=== PATIENT | male | born 1960 | race Caucasian/White ===

== ENCOUNTER 2017-08-22 22:25 | Emergency (ER) | payer MEDICARE, MEDICAID ==
[~2017-08-22] VITALS: Ht 180.3 cm; Wt 110.9 kg
[~2017-08-22 22:25] MED LIST: AMBIEN 10MG10 MG PO; AMOXICILLIN 50500 MG PO; COLACE 100100 MG/CAP PO; FLOMAX 0.40.4 MG/CAP PO; HUMALOG PEN100 U/ML SC; LANTUS SOLOS100 U/ML SC; LEVSIN 0.10.125 MG/T PO; LIPITOR 40MG TA40 MG PO; NORCO 325 MG-51 TAB PO; PRINIVIL10 MG PO; PYRIDIUM200 M1 PO
[2017-08-22 22:37] VITALS: TEMP 97.8
[2017-08-22] MEDS ORDERED: FLOMAX 0.40.4 MG/CAP PO (22:45)
[2017-08-22] MEDS ORDERED: LIPITOR 40MG TA40 MG PO (22:45)
[2017-08-22] MEDS ORDERED: PRINIVIL10 MG PO (22:46)
[2017-08-22] MEDS ORDERED: AMBIEN 10MG10 MG PO (22:46)
[2017-08-22 23:09] LABS: BASO % 0.6 % (0.0-2.0); EOS # 0.3 (0.0-0.7); GRAN # 2.7 (1.4-6.5); GRAN % 41.6 % (42.2-75.2); HEMATOCRIT 44.5 % (42.0-52.0); HEMOGLOBIN 16.3 g/dl (13.5-18.0); LYMPH # 2.9 (1.2-3.4); LYMPH % 44.3 % (20.0-51.0); MEAN CELL VOLUME 82 fl (80.0-100.0); MEAN CORPUSCULAR HEMOGLOBIN 30 pg (27.0-31.0); MEAN CORPUSCULAR HGB CONC 37 g/dl (33.0-37.0); MEAN PLATELET VOLUME 10.5 fl (7.4-10.4); MONO # 0.6 (0.1-0.6); MONO % 9.3 % (1.7-9.3); PLATELET COUNT 185 K/mm3 (130-400); RED BLOOD COUNT 5.45 M/mm3 (4.20-5.60); REDCELL DISTRIBUTION WIDTH-CV 12.3 % (11.5-14.5)
[2017-08-22 23:18] LABS: BILIRUBIN,TOTAL 0.4 mg/dL (0.0-1.0); CALCIUM 9.4 mg/dL (8.4-10.2); CREATININE, serum 0.56 mg/dL (0.66-1.25); TOTAL PROTEIN 7.9 gm/dL (6.4-8.2)
[2017-08-23 01:21] LABS: MUCOUS Present /lpf; PH 5 (5-8); SQUAMOUS EPITHELIAL 0-2 /hpf; URINE APPEARANCE Hazy; URINE BACTERIA None Seen /hpf; URINE BILIRUBIN Negative (NEGATIVE); URINE BLOOD 1+ (NEGATIVE); URINE COLOR Straw; URINE GLUCOSE 3+ (NEGATIVE); URINE KETONE Trace (NEGATIVE); URINE LEUKOCYTE ESTERASE 1+ (NEGATIVE); URINE NITRATE Negative (NEGATIVE); URINE PROTEIN(semi-quant) Negative (NEGATIVE); URINE UROBILINOGEN Negative (NEGATIVE); URINE WBC 20-50 /hpf
[2017-08-23 02:10] LABS: COLLECTION METHOD CLEAN CATCH
[2017-08-23 02:51] LABS: CALCIUM 8.6 mg/dL (8.4-10.2); CREATININE, serum 0.49 mg/dL (0.66-1.25); POTASSIUM 3.9 mmol/L (3.4-5.0)
[2017-08-23] MEDS ORDERED: CEPHALEXIN500 M1 PO (03:05)
[2017-08-23] MEDS ORDERED: LANTUS SOLOS100 U/ML SQ (03:05)
[2017-08-23] MEDS ORDERED: GLUCOPHAGE500 MG/TAB PO (03:05)
[2017-08-23 03:31] VITALS: BP 134/94; PULSE 95
== END 2017-08-23 03:31 | disposition home or self-care (01) ==
LOC: COL.ER 22:25
PROVIDERS: Emergency Medicine
DX: M79.662 Pain in left lower leg (principal); E11.42 Type 2 diabetes mellitus with diabetic polyneuropathy; E11.65 Type 2 diabetes mellitus with hyperglycemia; N39.0 Urinary tract infection, site not specified; T81.4XXA Infection following a procedure, initial encounter; L08.9 Local infection of the skin and subcutaneous tissue, unspecified; F17.210 Nicotine dependence, cigarettes, uncomplicated; I10 Essential (primary) hypertension; E78.5 Hyperlipidemia, unspecified; Z98.890 Other specified postprocedural states; Z79.84 Long term (current) use of oral hypoglycemic drugs
CPT/HCPCS: J0696; J1815; J7030

== ENCOUNTER 2019-12-30 17:28 | Inpatient (IN) | payer MEDICARE, MEDICAID ==
[2019-12-30] VITALS (9 sets, daily range): BP systolic 94–124; BP diastolic 48–81; PULSE 69–75; TEMP 98.9
[~2019-12-30] VITALS: Ht 180.3 cm; Wt 116.9 kg
[~2019-12-30 17:28] MED LIST changes: +CEPHALEXIN500 M1 PO; +GLUCOPHAGE500 MG/TAB PO; +LANTUS SOLOS100 U/ML SQ
--- NOTE | 2019-12-30 17:38 | NUR ---
PATIENT ARRIVED TO FLOOR AT 1700 VIA [facility]. RECEIVED REPORT FROM ER NURSE PARISH. SURGICAL STAFF GREETED PATIENT ON THE FLOOR. CONSENT SIGNED AND FLUIDS INITIATED. ANESTHEISA MET WITH PATIENT AND THEN HE WAS TAKEN STRAIGHT TO OR AT 1730.
--- NOTE | 2019-12-30 20:00 | NUR ---
Bedside report received from TIFFANY Lord
--- NOTE | 2019-12-30 20:45 | NUR ---
Patient laying comfortably in the bed. Admission complete. Assessment complete, see shift assessment for details. YESI Looney at the bedside.
[2019-12-31] VITALS (7 sets, daily range): BP systolic 96–133; BP diastolic 52–78; PULSE 57–80; TEMP 97.4–98.6
[2019-12-31] MEDS ORDERED: CIPRO 500MG TA500 MG PO (02:35)
[2019-12-31] MEDS ORDERED: LANTUS SOLOS100 U/ML SQ (02:36)
--- NOTE | 2019-12-31 06:00 | NUR ---
Patient has done well throughout the night. Pain has been well managed with medications. Patient's dressing is still intact with little drainage on the ABD pad. Patient has no further needs and is resting comfortably. Call light within reach.
[2019-12-31 07:12] LABS: HEMATOCRIT 37.7 % (42.0-52.0); HEMOGLOBIN 12.7 g/dl (13.5-18.0); MEAN CELL VOLUME 87 fl (80.0-100.0); MEAN CORPUSCULAR HEMOGLOBIN 29 pg (27.0-31.0); MEAN CORPUSCULAR HGB CONC 34 g/dl (33.0-37.0); MEAN PLATELET VOLUME 10.1 fl (7.4-10.4); PLATELET COUNT 250 K/mm3 (130-400); RED BLOOD COUNT 4.36 M/mm3 (4.20-5.60); REDCELL DISTRIBUTION WIDTH-CV 12.1 % (11.5-14.5)
--- NOTE | 2019-12-31 07:19 | NUR ---
Bedside report given to TIFFANY Mccarty. Wound dressing assessed. Transfer of care at this time.
[2019-12-31 07:31] LABS: CALCIUM 7.7 mg/dL (8.4-10.2); CREATININE, serum 0.47 (0.66-1.25); MAGNESIUM 1.9 mg/dL (1.6-2.3); POTASSIUM 3.6 mmol/L (3.4-5.0)
--- NOTE | 2019-12-31 08:30 | NUR ---
Patient laying in bed watching TV. A&Ox3. Denies pain and discomfort. IV CDI, fluids infusing. VSS. 1L NC O2. No reported SOB. No further needs expressed from the patient. Call light within reach
--- NOTE | 2019-12-31 09:46 | NUR ---
Initial visit; Patient thanked Diamond Wheel Molder for looking in on him and offering comfort and prayer.
[2019-12-31 10:32] LABS: BAND 9 % (0-10); BASOPHIL 2 % (0-2); EOSINOPHIL 5 % (0-4); NEUTROPHILS 45 % (42.0-75.2)
[2019-12-31 10:33] LABS: PLATELET ESTIMATE NORMAL (NORMAL)
[2019-12-31 10:35] LABS: LYMPHOCYTE 30 % (20.0-51.0)
--- NOTE | 2019-12-31 10:52 | NUR ---
Vegetable Farm Manager attended clinical rounds with the team. KARMA collaborated with MUNIR Goodman about ordering PT/OT. SW met with patient after rounds to discuss discharge planning. Patient lives in [place] with his mother, Carly (ph#[phone]) and brother, Raghu (ph#[phone]). Patient sees Dr. Smith for primary care and obtains his medications from [facility] in [place] with no difficulties. Patient has a CPAP and night oxygen from [facility]. Patient states he doesn't wear his CPAP because he is working on getting a new mask. Patient reports he also has a cane and is normally independent with ADLS. Patient does not have Advance Directives and his mother would be next of kin. Patient plans to return home upon discharge. KARMA will continue to follow.
--- NOTE | 2019-12-31 18:34 | NUR ---
Patient laying in bed watching TV. Reporting some discomfort in the tip of his penis. Desenex powder placed in jose area to help with excoriation/redness. Wound in jose area packed with 5 4x4 wet to dry and abd pad. Mesh underwear to keep dressing in place. Mariano to dependent drainage. yellow with sediment. VSS. Patient is A&O. IV CDI, fluids infusing. No further needs expressed from the patient. Call light within reach
--- NOTE | 2019-12-31 20:58 | NUR ---
Initial shift assessment done- states having some bladder spasms- requesting pain meds- will give Dilaudid at this time to see if effective. IV fluids of NS at 75cc/hr- on multiple antibiotics,SCD,s on. Mariano to DD with clear yellow urine. Wound dressing intact to open wound right under scrotum- dry and intact.
[2020-01-01] VITALS (9 sets, daily range): BP systolic 124–158; BP diastolic 68–87; PULSE 60–74; TEMP 97.6–98.7
--- NOTE | 2020-01-01 05:57 | NUR ---
Pt did not sleep much all night- has multiple antibiotics and blood sugars every 4 hours--was given Dilaudid IV x2 for pain- mainly described as bladder spasms- perineal dressing remained intact. Mariano with good amounts clear yellow urine.
--- NOTE | 2020-01-01 09:23 | NUR ---
Pt awake and alert upon entry. talkative, has C/P pain at abcess site from packing removal, medications given for relief, site covered with ABD pad. Sghift assessments complete, left Pt call light in reach, bed in lowest position.
--- NOTE | 2020-01-01 18:53 | NUR ---
pt resting in the room today, left floor for procedure this afternoon and returned about 1800, no C/O pain currently, VS have remained stable during the day.
--- NOTE | 2020-01-01 19:30 | NUR ---
Initial shift assessment done- VSS, just back from OR, perineal dressing dry and intact,, IV fluids of NS at 75cc/hr. Denies pain. Urinal at bedside. Was given a supper tray-no other requests.
[2020-01-02 00:54] VITALS: BP 139/81; PULSE 66; TEMP 97.6
[2020-01-02 03:37] VITALS: BP 134/82; PULSE 57; TEMP 97.6
--- NOTE | 2020-01-02 05:11 | NUR ---
Quiet night- continues with numerous antibiotics, Did change the outside ABD on perineal dressing for scant drainage-- order for BID wet-dry dressing changes- will start this AM. Was medicated for pain x1 with Dilaudid IV- very effective. IV fluids remain at 75cc/hr. New INT started in right hand- left arm INT was leaking-dcnik. Blood sugars in the 200,s all night- received sliding scale insulin coverage every 4 hours
[2020-01-02 07:32] VITALS: BP 142/89; PULSE 66; TEMP 97.4
[2020-01-02 08:59] LABS: HEMATOCRIT 39.7 % (42.0-52.0); HEMOGLOBIN 13.5 g/dl (13.5-18.0); MEAN CELL VOLUME 85 fl (80.0-100.0); MEAN CORPUSCULAR HEMOGLOBIN 29 pg (27.0-31.0); MEAN CORPUSCULAR HGB CONC 34 g/dl (33.0-37.0); MEAN PLATELET VOLUME 9.8 fl (7.4-10.4); PLATELET COUNT 238 K/mm3 (130-400); RED BLOOD COUNT 4.65 M/mm3 (4.20-5.60); REDCELL DISTRIBUTION WIDTH-CV 12.1 % (11.5-14.5)
[2020-01-02 09:07] LABS: CALCIUM 8.1 mg/dL (8.4-10.2); CREATININE, serum 0.51 (0.66-1.25); POTASSIUM 4.4 mmol/L (3.4-5.0)
--- NOTE | 2020-01-02 10:08 | NUR ---
Pt resting in the room, awake and alert upon entry, no C/O pain at this time. wet to dry packing changed, removed ABD pad, removed soiled gauze packing, removed packing had some bloody drainage showing, cleansed area, repacked wound using sterile technique using 3/4 roll of rolled gauze soaked with sterile water, covered with ABD pad. Shift assessments completed, left Pt call light in reach, bed in lowest position.
[2020-01-02 10:12] LABS: BAND 5 % (0-10); EOSINOPHIL 3 % (0-4); LYMPHOCYTE 38 % (20.0-51.0); NEUTROPHILS 44 % (42.0-75.2)
[2020-01-02 10:16] LABS: PLATELET ESTIMATE NORMAL (NORMAL)
[2020-01-02 11:53] VITALS: BP 147/87; PULSE 62; TEMP 97.6
[2020-01-02 16:10] VITALS: BP 145/91; PULSE 71; TEMP 98.5
--- NOTE | 2020-01-02 19:02 | NUR ---
Pt rested in the room today, no C/O pain, replaced ABD pad late this afternoon. no other issues noted, VS have remained stable.
[2020-01-02 19:42] VITALS: BP 134/79; PULSE 70; TEMP 98.6
--- NOTE | 2020-01-02 20:00 | NUR ---
Assessment complete. Resting in bed, watching television. Conversant. Denies needs at this time.
[2020-01-03 00:14] VITALS: BP 127/81; PULSE 59; TEMP 97.9
[2020-01-03 03:29] VITALS: BP 126/68; PULSE 49; TEMP 97.8
[2020-01-03 06:57] VITALS: BP 152/89; PULSE 61; TEMP 97.9
[2020-01-03 07:07] LABS: HEMATOCRIT 38.6 % (42.0-52.0); MEAN CELL VOLUME 87 fl (80.0-100.0); MEAN CORPUSCULAR HEMOGLOBIN 29 pg (27.0-31.0); MEAN CORPUSCULAR HGB CONC 34 g/dl (33.0-37.0); MEAN PLATELET VOLUME 10.2 fl (7.4-10.4); PLATELET COUNT 253 K/mm3 (130-400); RED BLOOD COUNT 4.42 M/mm3 (4.20-5.60)
[2020-01-03 07:27] LABS: CALCIUM 8.4 mg/dL (8.4-10.2); CREATININE, serum 0.47 (0.66-1.25); POTASSIUM 3.8 mmol/L (3.4-5.0)
[2020-01-03 09:34] LABS: BAND 2 % (0-10); EOSINOPHIL 8 % (0-4); METAMYELOCYTE 1 % (0-0); MYELOCYTE 2 % (0-0); NEUTROPHILS 45 % (42.0-75.2)
[2020-01-03 09:36] LABS: LYMPHOCYTE 30 % (20.0-51.0); PLATELET ESTIMATE NORMAL (NORMAL)
--- NOTE | 2020-01-03 10:00 | NUR ---
Pt abcess repacked with wet to dry dressing using 2" gauze bandage, sterile water, sterile technique used, Pt tolerated procedure well.
--- NOTE | 2020-01-03 10:42 | NUR ---
Pt awake and alert uopn entry, talkative and in good spirits, no C/O pain this morning. Shift assessments complete, left Pt call light in reach, bed in lowest position.
[2020-01-03 11:30] VITALS: BP 173/93; PULSE 66; TEMP 98.1
--- NOTE | 2020-01-03 15:21 | NUR ---
Wood Grinder met with patient to review discharge plan. Patient states he is eager to return home and has been ambulating the halls. SW collaborated with Hospitalist who does not anticipate need for IV antibiotics at discharge but will provide updates as needed. SW will continue to follow.
[2020-01-03 17:04] VITALS: BP 159/91; PULSE 76; TEMP 98.4
--- NOTE | 2020-01-03 19:13 | NUR ---
Pt resting in the room today, no C/O pain today, expressed desire to return home, VS have remained stable.
[2020-01-03 19:28] VITALS: BP 137/91; PULSE 76; TEMP 99
--- NOTE | 2020-01-03 19:44 | NUR ---
Report received from TIFFANY Puente. Pt resting in bed, denies needs at this time.
[2020-01-04] VITALS: BP 121/78; PULSE 70; TEMP 98.2
--- NOTE | 2020-01-04 03:11 | NUR ---
PATIENT WITH NO REPORTED C/O OR CONCERNS. UP IN ROOM INDEPENDENTLY WITH NO PROBLEMS.
[2020-01-04 04:41] VITALS: BP 143/86; PULSE 63; TEMP 97.1
--- NOTE | 2020-01-04 07:19 | NUR ---
Change of shift report given to day shift nurseShannon. Patient with no c/o during report.
[2020-01-04 07:28] VITALS: BP 146/95; PULSE 85; TEMP 97.4
[2020-01-04 08:39] LABS: BASO % 0.5 % (0.0-2.0); EOS # 0.2 (0.0-0.7); EOS % 4.2 % (0-4.0); GRAN # 2.6 (1.4-6.5); GRAN % 48.4 % (42.2-75.2); HEMATOCRIT 42.8 % (42.0-52.0); HEMOGLOBIN 14.5 g/dl (13.5-18.0); LYMPH % 37.2 % (20.0-51.0); MEAN CELL VOLUME 86 fl (80.0-100.0); MEAN CORPUSCULAR HEMOGLOBIN 29 pg (27.0-31.0); MEAN CORPUSCULAR HGB CONC 34 g/dl (33.0-37.0); MEAN PLATELET VOLUME 9.8 fl (7.4-10.4); MONO # 0.5 (0.1-0.6); MONO % 8.4 % (1.7-9.3); PLATELET COUNT 280 K/mm3 (130-400); RED BLOOD COUNT 4.98 M/mm3 (4.20-5.60); REDCELL DISTRIBUTION WIDTH-CV 12.2 % (11.5-14.5)
[2020-01-04 08:49] LABS: CALCIUM 9.1 mg/dL (8.4-10.2); CREATININE, serum 0.52 (0.66-1.25); POTASSIUM 4.3 mmol/L (3.4-5.0)
[2020-01-04] MEDS ORDERED: DESENEX TP (09:19)
[2020-01-04] MEDS ORDERED: CEFTIN500 MG PO (09:23)
[2020-01-04] MEDS ORDERED: FLAGYL500 MG PO (09:23)
[2020-01-04] MEDS ORDERED: NORCO 325 MG-51 TAB PO (09:24)
--- NOTE | 2020-01-04 11:43 | NUR ---
PT DISCHARGED TO HOME ACCOMPANIED BY MOTHER @ 1130. PERINEAL WOUND DRESSING CHANGED @1100. OLD DRESSING WITH SCANT SEROSANGUINOUS DRAINAGE. PT DENIES PAIN TO SITE. NO ERYTHEMA NOTED. REDNESS NOTED THROUGHOUT GROIN AND ABDOMINAL FOLDS. DESENEX APPLIED. IV DC'D/ NORCO SCRIPT GIVEN. DISCHARGE INSTRUCTIONS REVIEWED. NO NEW CONCERNS
== END 2020-01-04 11:30 | disposition home or self-care (01) | DRG 717 ==
LOC: SDCO 17:28 → MEDICAL 17:28 → SDCO 20:49 → MEDICAL 20:50
PROVIDERS: Nurse Practitioner Family; Physician Assistant; Student in an Organized Health Care Education/Training Program; Urology; ADMIT Hospitalist
PROC: 0JBB0ZZ Excision of Perineum Subcutaneous Tissue and Fascia, Open Approach (ICD-10-PCS; principal; 2019-12-30 17:00)
PROC: 0HQ9XZZ Repair Perineum Skin, External Approach (ICD-10-PCS; 2020-01-01)
DX: N49.3 Fournier gangrene (principal); N39.0 Urinary tract infection, site not specified; L02.215 Cutaneous abscess of perineum; I96 Gangrene, not elsewhere classified; E11.42 Type 2 diabetes mellitus with diabetic polyneuropathy; B37.2 Candidiasis of skin and nail; I10 Essential (primary) hypertension; E78.5 Hyperlipidemia, unspecified; F17.210 Nicotine dependence, cigarettes, uncomplicated; Z79.4 Long term (current) use of insulin; Z89.411 Acquired absence of right great toe
CPT/HCPCS: 99223-AI; 99232-AI; 99233-AI; 99239; A4314; J0690; J1100; J1170; J1335; J1450; J1815; J1885; J2185; J2405; J2704; J3010; J3370; J7030; J7040

== ENCOUNTER 2020-10-13 13:54 | Day surgery (SDC) | payer MEDICARE, MEDICAID ==
[2020-10-13] VITALS (10 sets, daily range): BP systolic 82–116; BP diastolic 49–79; PULSE 70–95; TEMP 97.5–98
[~2020-10-13] VITALS: Ht 180.3 cm; Wt 120.9 kg
[~2020-10-13 13:54] MED LIST changes: +CEFTIN500 MG PO; +CIPRO 500MG TA500 MG PO; +DESENEX TP; +FLAGYL500 MG PO
[2020-10-13] MEDS ORDERED: CIPRO 250MG TA250 MG PO (15:00)
[2020-10-13] MEDS ORDERED: CRANBERRY FRUI425 MG PO (15:00)
[2020-10-13] MEDS ORDERED: NOVOLOG FLEX100 U/ML SQ (15:01)
[2020-10-13] MEDS ORDERED: NEURONTIN300 MG/CAP PO ×2 (15:02)
--- NOTE | 2020-10-13 15:45 | NUR ---
The patient's blood sugar was rechecked with a result of 121. D51/2NS continues to infuse without difficulty. Will continue to monitor the patient.
--- NOTE | 2020-10-13 16:00 | NUR ---
The patient's sugery has been delayed as he reported to have eaten "15 pringles at 1:00pm". The patient's surgery is now scheduled to start after 1700. Call light remains within reach. Will continue to monitor the patient.
--- NOTE | 2020-10-13 17:15 | NUR ---
The patient was taken back via cart to the operating room at this time. The patient's belongings will be taken over to the recovery room and transferred with him to the 3rd floor post operatively.
--- NOTE | 2020-10-13 18:50 | NUR ---
PATIENT ARRIVED TO ROOM 322-2 VIA BED FROM PACU. PATIENT SETTELED INTO ROOM. POST-OP VSS. WILL REPORT OFF TO ONCOMING NURSE.
--- NOTE | 2020-10-13 23:20 | NUR ---
Patient assessed around 2044. Alert and oriented x 4, and able to make needs known. Denies having pain and discomfort. Peripheral IV to left hand with fluids running per orders. Site without redness, warmth, swelling, and pain. Denies having SOB and dyspnea. LS CTA. Respirations even and unlabored. HRR. Capillary refill less than 3 seconds. Non-tenting skin turgor. BSAx4. Abdomen soft and non-tender. 1+ edema BLE. Patient has minimal feeling in BLE related to anesthesia. SCDs are on. Indwelling torres catheter patient. Output was completely clear, like water at shift change, and CBI turned down to a slow drip. Urine is clear and yellow at this time. Did a have a few small clots. Continues to deny having pain and discomfort at this time.
--- NOTE | 2020-10-14 01:57 | NUR ---
Patient pulled out IV to left hand. New one started to left hand. IV fluids continue per orders. Urine continues to be without clots at this time, ranging from clear to red. CBI continues to run slow.
[2020-10-14 04:47] VITALS: BP 103/65; PULSE 83; TEMP 97.7
--- NOTE | 2020-10-14 05:09 | NUR ---
Patient was up most of night, despite having Ambien. Patient tolerating oral food and drink well. Continues on continuous bladder irrigation, running slow. Output is clear/light pink in color at this time. IV fluids continue to IV to left hand. Patient voices no questions, needs, or concerns at this time. Resting in bed with call light within reach.
[2020-10-14 08:00] VITALS: BP 125/80; PULSE 90; TEMP 98.1
--- NOTE | 2020-10-14 08:00 | NUR ---
Patient resting in bed at this time, is alert and oriented, answers questions appropriately. CBI running at a slow rate, urine alternates between pink and pale yellow. IVF per order. Patient denies pain other than at catheter insertion site, applied topical gel. Patient denies pain or further needs, call light within reach.
[2020-10-14 12:00] VITALS: BP 125/73; PULSE 73; TEMP 99
--- NOTE | 2020-10-14 12:00 | NUR ---
Mariano removed per order, patient tolerated well. Six cup initiated. Patient denies further needs, call light within reach.
--- NOTE | 2020-10-14 12:46 | NUR ---
First visit from the staff mine warfare officer. Patient asked for a devotional book. Senior Business Architect delivered one to him. No other needs right now.
--- NOTE | 2020-10-14 14:57 | NUR ---
Discharge teaching completed. Discussed follow up appointment, discharge instructions, and medication changes. INT removed, catheter intact, hemostasis achieved. Patient escorted to ED entrance where he entered a private vehicle.
== END 2020-10-14 14:57 | disposition home or self-care (01) ==
LOC: SURG 13:54 → SDCO 13:54 → SURG 18:50 → SDCO 10-14 14:57
DX: N13.2 Hydronephrosis with renal and ureteral calculous obstruction (principal); N13.5 Crossing vessel and stricture of ureter without hydronephrosis; N40.1 Benign prostatic hyperplasia with lower urinary tract symptoms; R33.8 Other retention of urine; E10.42 Type 1 diabetes mellitus with diabetic polyneuropathy; E78.5 Hyperlipidemia, unspecified; I10 Essential (primary) hypertension; N39.0 Urinary tract infection, site not specified; G47.33 Obstructive sleep apnea (adult) (pediatric); F17.200 Nicotine dependence, unspecified, uncomplicated; G47.00 Insomnia, unspecified; Z79.899 Other long term (current) drug therapy; Z79.4 Long term (current) use of insulin; Z79.2 Long term (current) use of antibiotics
CPT/HCPCS: OP; C1769; J1815; J2250; J2405; J2704; J3010; J3480

== ENCOUNTER → 2020-12-28 | Outpatient (CLI) | payer MEDICARE, MEDICAID ==
[~2020-12-28] MED LIST changes: +CIPRO 250MG TA250 MG PO; +CRANBERRY FRUI425 MG PO; +NEURONTIN300 MG/CAP PO; +NOVOLOG FLEX100 U/ML SQ
--- NOTE | 2020-12-28 13:11 | NUR ---
PATIENT SAID THEY HAD CAFFINE THIS MORNING AND WILL NEED TO RESCHEDULE. PATIENT STATED THEY DID NOT WANT TO RESCHEDULE TEST. DR. CHAVEZ OFFICE NOTIFIED.
== END ==
LOC: COL.PUL 12:32
DX: R06.02 Shortness of breath (principal)